=== PATIENT | female | born 1955 | race Caucasian/White ===

== ENCOUNTER 2016-09-29 20:03 | Emergency (ER) | payer OTHER ==
[~2016-09-29] VITALS: Ht 160 cm; Wt 60.2 kg
[~2016-09-29 20:03] MED LIST: ADVIN25/60 INH; ATV/1 PO; CHOL100027 PO; LSN/10125 PO; MELO15TA3 PO; NRN/300 PO
[2016-09-29 20:07] VITALS: TEMP 36.8; Ht 160 cm; Wt 60.2 kg
[2016-09-29 20:45] LABS: HEMATOCRIT 40.8 % (37-47); MEAN CELL VOLUME 86.4 fL (80-100); MEAN CORPUSCULAR HEMOGLOBIN 31.1 pg (25-34); PLATELET COUNT 251 K/uL (130-400); RED BLOOD COUNT 4.72 M/uL (4.2-5.4); WHITE BLOOD COUNT 10.72 K/uL (4.8-10.8)
[2016-09-29] MEDS ORDERED: CHOL1CAP57 PO (20:54)
[2016-09-29] MEDS ORDERED: LSN/20125 PO (20:54)
[2016-09-29] MEDS ORDERED: PRVHFAIN INH (20:54)
[2016-09-29] MEDS ORDERED: HYDR-5688 PO (20:54)
[2016-09-29] MEDS ORDERED: SYMIN160 INH (20:54)
[2016-09-29] MEDS ORDERED: VALA500T60 PO (20:57)
[2016-09-29 20:59] LABS: BUN/CREATININE RATIO 11.1 (10-20); CALCIUM 9.5 mg/dl (8.5-10.1); CREATININE 1.7 mg/dl (0.60-1.20); POTASSIUM 3.8 mmol/L (3.5-5.1)
[2016-09-29] MEDS ORDERED: SODIUM CHLORIDE 0.9% 1000ML 1,000 ML IV STA (21:02)
[2016-09-29 21:05] LABS: BENZODIAZEPINE, URINE NEG (NEG); COCAINE,URINE NEG (NEG); PHENCYCLIDINE, URINE NEG (NEG)
[2016-09-29 21:10] LABS: ACETAMINOPHEN < 2 ug/ml (10-30); THYROID STIMULATING HORMONE 4.23 uIu/ml (0.300-4.500)
[2016-09-29 21:44] VITALS: BP 142/77; PULSE 75; O2SAT 97
[2016-09-29] MEDS ORDERED: ATIVAN 1MG HOMEPACK PO ONE (22:00)
--- NOTE | 2016-09-29 22:08 | EMERGENCY ROOM VISIT NOTE ---
History Report prepared by Jameeibashley: Radha Solano Under the Supervision of: Dr. Dante Alcantar M.D. First contact with patient: 20:16 Chief Complaint: HYPERTENSION Stated Complaint: HTN, RAPID HEART RATE, ODOR IN VAGINA History of Present Illness The patient is a 61 year old female who presents to the Emergency Room with complaints of persistent elevated blood pressure that began 4 days ago. Her blood pressure reached up to 164 systolically this morning. The patient does have a history of hypertension and is on medication to control her blood pressure. She also complains of a rapid heart rate, palpitations, intermittent sweats, and lightheadedness that began around that time. About a week ago, she started to notice a chemical-like odor from her vaginal area. The odor is not fishy. She has not been sexually active for over a year. Currently she notes that she has a cough and congestion. She has had diarrhea over the past couple of days.The patient states that she is afraid that the tenants who live below her are poisoning her. They apparently have a pagan to her apartment and come into her residence. She believes that they have a pagan because they may be related to the landlord. The patient lives alone at home. She has had difficulty sleeping recently. Denies chest pain, shortness of breath, vomiting, abdominal pain, or other complaints. The patient notes that there have been people sick with the flu where she works. Denies homicidal or suicidal ideation. She has not had any auditory hallucinations. Source of History: patient Onset: 4 days ago Position: other (Global ) Symptom Intensity: 164 systolic Quality: other (hypertension) Timing: other (persistent) Associated Symptoms: + cough, + diarrhea, No SOB, No abdominal pain, No chest pain, No vomiting Note: Other symptoms: lightheadedness with exertion, intermittent sweats, rapid heart rate, palpitations, vaginal odor Review of Systems See HPI for pertinent positives & negatives. A total of 10 systems reviewed and were otherwise negative. Past Medical & Surgical Medical Problems: (1) Asthma (2) HTN (hypertension) Family History Diabetes mellitus FH: heart disease Hypertension Kidney disease or stones Social History Smoking Status: Current Every Day Smoker Housing Status: lives alone Current/Historical Medications Scheduled Budesonide/Formoterol Fumarate (Symbicort 160/4.5 Inhaler ), 2 PUFFS INH BID Cholecalciferol (Vitamin D3), 1,000 INTER.UNIT PO DAILY Hctz/Lisinopril (Zestoretic 20MG/12.5MG), 1 TAB PO DAILY Scheduled PRN Albuterol (Ventolin Hfa), 2 PUFFS INH Q4H PRN for Wheezing Hydrocodone/Acetaminophen 5MG/325MG ([place] 5MG/325MG), 1 TABLET PO DAILY PRN for Pain Lorazepam (Ativan), 1 MG PO BID PRN for Anxiety Valacyclovir (Valtrex), 500 MG PO UD PRN for Itchy Rash Allergies Coded Allergies: No Known Allergies (Unverified , 09/11/13) Physical Exam Vital Signs Date Time Temp Pulse Resp B/P Pulse Ox O2 Delivery O2 Flow Rate FiO2 09/29/16 21:44 75 18 142/77 97 Room Air 09/29/16 20:56 83 09/29/16 20:07 36.8 105 18 128/89 97 Room Air Physical Exam Constitutional: Vital signs reviewed. Eyes: Pupils are equal round reactive to light. Conjunctiva are noninjected. ENT: Pharynx is clear without erythema or exudate. Mucous membranes are moist. Neck supple without meningeal signs. Respiratory: Clear to auscultation bilaterally. Breath sounds are equal bilaterally. Cardiovascular: Regular rate and rhythm. No rubs or gallops. GI: Soft, nondistended and nontender. Bowel sounds are present. : She has no abnormal discharge, no significant odor, no cervical motion tenderness, no adnexal masses. Musculoskeletal: No peripheral edema. No lower extremity tenderness. No CVA tenderness. Integumentary: No cyanosis. Neurological: The patient is awake and alert. No focal deficits. Psychiatric: Slightly anxious appearing. Medical Decision & Procedures Laboratory Results 09/29/16 20:15 09/29/16 20:15 Test 09/29/16 20:15 09/29/16 20:30 09/29/16 20:45 Red Blood Count 4.72 M/uL (4.2-5.4) Mean Corpuscular Volume 86.4 fL (80-100) Mean Corpuscular Hemoglobin 31.1 pg (25-34) Mean Corpuscular Hemoglobin Concent 36.0 g/dl (32-36) RDW Standard Deviation 41.9 fL (36.4-46.3) RDW Coefficient of Variation 13.1 % (11.5-14.5) Mean Platelet Volume 10.0 fL (7.4-10.4) Anion Gap 12.0 mmol/L (3-11) Est Creatinine Clear Calc Drug Dose 29.5 ml/min Estimated GFR () 37.6 Estimated GFR (Non- 32.4 BUN/Creatinine Ratio 11.1 (10-20) Calcium Level 9.5 mg/dl (8.5-10.1) Total Bilirubin 0.5 mg/dl (0.2-1) Direct Bilirubin 0.1 mg/dl (0-0.2) Aspartate Amino Transf (AST/SGOT) 22 U/L (15-37) Alanine Aminotransferase (ALT/SGPT) 17 U/L (12-78) Alkaline Phosphatase 56 U/L (45-117) Total Protein 8.3 gm/dl (6.4-8.2) Albumin 4.8 gm/dl (3.4-5.0) Thyroid Stimulating Hormone (TSH) 4.230 uIu/ml (0.300-4.500) Free Thyroxine 1.41 ng/dl (0.80-1.60) Salicylates Level 4.3 mg/dl (2.8-20) Acetaminophen Level < 2 ug/ml (10-30) Ethyl Alcohol mg/dL < 3.0 mg/dl (0-3) Urine Opiates Screen POS (NEG) Urine Methadone, Qualitative NEG (NEG) Urine Barbiturates NEG (NEG) Urine Phencyclidine (PCP) Level NEG (NEG) Ur Amphetamine/Methamphetamine NEG (NEG) MDMA (Ecstasy) Screen NEG (NEG) Urine Benzodiazepines Screen NEG (NEG) Urine Cocaine Metabolite NEG (NEG) Urine Marijuana (THC) NEG (NEG) Date/Time Source Procedure Growth Status 09/29/16 20:45 Vaginal Swab Trichomonas Preparation - Final Complete Laboratory results as reviewed by me. Medications Administered Medications (Trade) Dose Ordered Sig/Alex Route Start Time Stop Time Status Last Admin Dose Admin Sodium Chloride (Nss 1000ml) 1,000 ml @ 999 mls/hr Q1H1M STAT IV 09/29/16 21:02 09/29/16 22:02 DC 09/29/16 21:43 999 MLS/HR Lorazepam (Ativan 1MG Home Pack) 1 homepack UD ONCE PO 09/29/16 22:00 09/29/16 22:01 DC 09/29/16 21:54 1 HOMEPACK ECG Indication: palpitations Rate (beats per minute): 98 Rhythm: normal sinus Findings: no acute ischemic change, no ectopy ED Course 2018: The patient was evaluated in room B10. A complete history and physical exam was performed. 2101: Ordered NSS 1000 ml @ 999 mls/hr IV. 2147: I reassessed the patient and discussed test results with her. She requested something to help her sleep tonight. The patient will be discharged home. 2199: Ordered Lorazepam 1 homepack PO. Medical Decision This is a 61-year-old female presents with palpitations, elevated blood pressure and vaginal odor. Differential diagnosis includes anxiety, hypertension, metabolic derangement, electrolyte abnormality, vaginosis, STI. I did perform a limited focused review of portions of the patient's old chart on the electronic medical record. The patient has had no recent pertinent visits to this hospital. I did evaluate the patient as noted above. The patient's blood pressure is not significantly elevated here. She is taking medications for her blood pressure and it seems to be well-controlled. I did perform a pelvic examination and obtaining general cultures as well as testing for GC and Trichomonas. The pelvic exam itself was unremarkable without any significant odor or discharge. Trichomonas testing was negative. Cultures and GC testing is pending. IV access was established. The patient was placed on a continuous playground monitor. She has no ectopy on the monitor. I did order and personally review the patient's 12-lead EKG as described above. I did order and review the patient's blood work as noted in the electronic medical record. She has some mild hyponatremia. Her creatinine and BUN are slightly elevated as well. This is elevated above her baseline and she was given a liter normal saline. She does state that she has been urinating normally. I did discuss the test results with the patient. I did recommend she follow closely with her doctor this week and have him recheck her creatinine to make sure that it is coming down. She was advised that if she is concerned that her neighbors are coming into her home that she should inform the police. She clearly has some paranoia regarding her neighbors but she does not appear acutely psychotic. She denies any auditory or visual hallucinations. She has no suicidal or homicidal ideation and has not shown herself to be a danger to herself or others. She was therefore discharged in good condition. Impression Primary Impression: Palpitations Additional Impressions: High blood pressure Creatinine elevation Vaginal odor Hyponatremia Scribe Attestation The scribe's documentation has been prepared under my direct and personally reviewed by me in its entirety. I confirm that the note above accurately reflects all work, treatment, procedures, and medical decision making performed by me. Departure Information Dispostion Home / Self-Care Referrals No Doctor, Assigned (PCP) Patient Instructions ED Palpitations, Hyponatremia Dc, Lorazepam Oral solution, My [facility] Additional Instructions You have been examined and treated today on an emergency basis only. This is not a substitute for, or an effort to provide, complete comprehensive medical care. It is impossible to recognize and treat all injuries or illnesses in a single emergency department visit. It is therefore important that you follow up closely with your physician. Call as soon as possible for an appointment. Return for worsening symptoms or if you develop fever, chest pain, shortness of breath or any other concerning symptoms. Have your doctor recheck your kidney function which was high today. Your creatinine was 1.7. Normal is 0.9. Problem Qualifiers
[2016-10-02 03:42] LABS: CHLAMYDIA TRACH RNA*** NOT DETECTED (NOT DETECTED); GC (NEIS GONORRHOEAE)RNA** NOT DETECTED (NOT DETECTED)
[2016-10-02 13:54] LABS: COD UR NEGATIVE NG/ML (CUTOFF=50); HYDROCOD UR 429 NG/ML (CUTOFF=50); HYDROMOR UR 249 NG/ML (CUTOFF=50); MORPHINE UR NEGATIVE NG/ML (CUTOFF=50); NORHYDROCODONE CONF UR 755 NG/ML (CUTOFF=50); OXYMORPH UR NEGATIVE NG/ML (CUTOFF=50)
[2016-11-25] MEDS ORDERED: ARIP2TAB3 PO (14:06)
== END 2016-09-29 21:57 | disposition home or self-care (01) ==
LOC: C.EDB 20:05
DX: R00.2 Palpitations (principal); I10 Essential (primary) hypertension; R79.89 Other specified abnormal findings of blood chemistry; N89.8 Other specified noninflammatory disorders of vagina; E87.1 Hypo-osmolality and hyponatremia; J45.909 Unspecified asthma, uncomplicated; F17.210 Nicotine dependence, cigarettes, uncomplicated; Z79.899 Other long term (current) drug therapy

== ENCOUNTER 2016-10-02 15:10 | Inpatient (IN) | payer OTHER ==
[~2016-10-02] VITALS: Ht 160 cm; Wt 60.9 kg
[~2016-10-02 15:10] MED LIST changes: -ADVIN25/60 INH; -CHOL100027 PO; +CHOL1CAP57 PO; +HYDR-5688 PO; -LSN/10125 PO; +LSN/20125 PO; -MELO15TA3 PO; -NRN/300 PO; +PRVHFAIN INH; +SYMIN160 INH; +VALA500T60 PO
[2016-10-02 16:29] LABS: URINE APPEARANCE CLEAR (CLEAR); URINE BILIRUBIN NEG (NEG); URINE COLOR YELLOW; URINE EPITHELIAL CELL AUTO >30 /lpf (0-5); URINE NITRITE NEG (NEG); URINE PH 6.5 (4.5-7.5); URINE SPECIFIC GRAVITY 1.005 (1.000-1.030); UROBILINOGEN NEG (NEG)
[2016-10-02 16:33] LABS: MANUAL MICROSCOPIC REQUIRED? NO; REVIEW REQ? NO
[2016-10-02 16:35] LABS: BASO % 0.5 %; BASO ABS # 0.04 K/uL (0-0.2); COMPLETE YES; HEMATOCRIT 35.6 % (37-47); IG% 0.2 %; LYMPH % 28.6 %; LYMPH ABS # 2.32 K/uL (1.2-3.4); MEAN CELL VOLUME 85.2 fL (80-100); MEAN CORPUSCULAR HEMOGLOBIN 30.1 pg (25-34); MEAN CORPUSCULAR HGB CONC 35.4 g/dl (32-36); MEAN PLATELET VOLUME 9.6 fL (7.4-10.4); MONO % 4.3 %; NEUT % 64.4 %; PLATELET COUNT 218 K/uL (130-400); RED BLOOD COUNT 4.18 M/uL (4.2-5.4); WHITE BLOOD COUNT 8.12 K/uL (4.8-10.8)
[2016-10-02 16:46] LABS: BENZODIAZEPINE, URINE NEG (NEG); COCAINE,URINE NEG (NEG); PHENCYCLIDINE, URINE NEG (NEG)
[2016-10-02 16:52] LABS: ALT/SGPT 17 U/L (12-78); AST/SGOT 15 U/L (15-37); BLOOD UREA NITROGEN 12 mg/dl (7-18); BUN/CREATININE RATIO 15.2 (10-20); CALCIUM 8.7 mg/dl (8.5-10.1); CARBON DIOXIDE 25 mmol/L (21-32); CHLORIDE 95 mmol/L (98-107); GLUCOSE 121 mg/dl (70-99); POTASSIUM 3.4 mmol/L (3.5-5.1); SODIUM 130 mmol/L (136-145)
[2016-10-02 17:02] LABS: ALB/GLOB RATIO 1.4 (0.9-2); ALKALINE PHOSPHATASE 52 U/L (45-117); THYROID STIMULATING HORMONE 0.559 uIu/ml (0.300-4.500)
--- NOTE | 2016-10-02 18:10 | DIAGNOSTIC IMAGING REPORT ---
CT HEAD WITHOUT CONTRAST (CT) CLINICAL HISTORY: Acute psychosis COMPARISON STUDY: No previous studies for comparison. TECHNIQUE: Axial CT of the brain is performed from the vertex to the skull base. IV contrast was not administered for this examination. CT DOSE: 638.56 mGycm FINDINGS: No intra or extra-axial mass lesions are visualized. There is no CT evidence of acute cortical infarction. There is no evidence of midline shift. There is no acute hemorrhage. No calvarial fractures are visualized. There is no evidence of pathologic ventricular dilatation. There is no evidence of acute sinusitis IMPRESSION: Normal noncontrast head CT for age. Electronically signed by: Elie Ernst M.D. 10/02/2016 6:09 PM Dictated Date/Time: 10/02/2016 6:08 PM
[2016-10-02] MEDS ORDERED: NURSING VERBAL MED ORDER ONE ×2 (19:00→19:45)
[2016-10-02 19:05] VITALS: O2SAT 98
--- NOTE | 2016-10-02 19:10 | EMERGENCY ROOM VISIT NOTE ---
History Report prepared by Andrews: Carl Fry Under the Supervision of: Dr. Kiran Ch D.O. First contact with patient: 15:37 Chief Complaint: MENTAL HEALTH EVALUATION Stated Complaint: HEAR PEOPLE TALKING TO ME History of Present Illness The patient is a 61 year old female who presents to the Emergency Room with complaints of persistent auditory hallucinations starting about 2 months ago. The patient has ringing in her ears. She reports the voices are telling her what she is doing, when she is doing it. They have been telling her that they don't like her and have placed something on her to watch her. The patient thinks that the voices are related to the landlord because her lights have been turned on and things are moved around. She states that she always locks her door but something she has been finding it to be unlocked. She reports increased stress. The patient also complains of high blood pressure and diarrhea. She has a history of hypertension. As per coworker, the patient has been at baseline for the past few days but informed her of the auditory hallucinations and asked to come to the Emergency Room. The patient has a history of anxiety. She denies any history of hallucinations or bipolar disorder. She currently denies any suicidal or homicidal ideation. She is currently in no pain. Pt denies headache, change in vision, fevers, chest pain , shortness of breath, nausea, vomiting, pain with urination, and melena. Source of History: patient Onset: about 2 months ago Position: other (global) Symptom Intensity: No pain Quality: other (auditory hallucinations) Timing: other (persistent) Associated Symptoms: + diarrhea, No SOB, No abdominal pain, No chest pain, No fevers, No nausea, No vomiting Review of Systems See HPI for pertinent positives & negatives. A total of 10 systems reviewed and were otherwise negative. Past Medical & Surgical Medical Problems: (1) Asthma (2) HTN (hypertension) Family History Diabetes mellitus FH: heart disease Hypertension Kidney disease or stones Social History Smoking Status: Current Every Day Smoker Marital Status: single Housing Status: lives alone Occupation Status: employed Current/Historical Medications Scheduled Budesonide/Formoterol Fumarate (Symbicort 160/4.5 Inhaler ), 2 PUFFS INH BID Cholecalciferol (Vitamin D3), 1,000 INTER.UNIT PO DAILY Hctz/Lisinopril (Zestoretic 20MG/12.5MG), 1 TAB PO DAILY Scheduled PRN Albuterol (Ventolin Hfa), 2 PUFFS INH Q4H PRN for Wheezing Hydrocodone/Acetaminophen 5MG/325MG ([place] 5MG/325MG), 1 TAB PO TID PRN for Pain Lorazepam (Ativan), 1 MG PO BID PRN for Anxiety Allergies Coded Allergies: No Known Allergies (Unverified , 09/11/13) Physical Exam Vital Signs Date Time Temp Pulse Resp B/P Pulse Ox O2 Delivery O2 Flow Rate FiO2 10/02/16 16:32 83 17 135/86 98 Room Air 10/02/16 15:18 36.8 87 18 157/94 100 Room Air Physical Exam GENERAL: Sitting up in bed, no acute distress, nontoxic. EYE EXAM: normal conjunctiva OROPHARYNX: no exudate, no erythema, lips, buccal mucosa, and tongue normal and mucous membranes are moist NECK: supple, no nuchal rigidity, no adenopathy, non-tender LUNGS: Clear to auscultation. Normal chest wall mechanics HEART: no murmurs, S1 normal and S2 normal ABDOMEN: abdomen soft, non-tender, normo-active bowel sounds, no masses, no rebound or guarding. SKIN: no rashes and no bruising UPPER EXTREMITIES: upper extremities are grossly normal. LOWER EXTREMITIES: No pitting edema. NEURO EXAM: Normal sensorium, cranial nerves II-XII grossly intact, normal speech, no gross weakness of arms, no gross weakness of legs. PSYCHIATRIC: Denies homicidal or suicidal ideation, denies visual hallucinations , admits to hearing voices. Paranoid. Medical Decision & Procedures ER Provider Diagnostic Interpretation: CT:Per my review, radiologist interpretation. CT HEAD WITHOUT CONTRAST (CT) CLINICAL HISTORY: Acute psychosis COMPARISON STUDY: No previous studies for comparison. TECHNIQUE: Axial CT of the brain is performed from the vertex to the skull base. IV contrast was not administered for this examination. CT DOSE: 638.56 mGycm FINDINGS: No intra or extra-axial mass lesions are visualized. There is no CT evidence of acute cortical infarction. There is no evidence of midline shift. There is no acute hemorrhage. No calvarial fractures are visualized. There is no evidence of pathologic ventricular dilatation. There is no evidence of acute sinusitis IMPRESSION: Normal noncontrast head CT for age. Electronically signed by: Elie Ernst M.D. 10/02/2016 6:09 PM Dictated Date/Time: 10/02/2016 6:08 PM Laboratory Results 10/02/16 16:11 Red Blood Count 4.18, Mean Corpuscular Volume 85.2, Mean Corpuscular Hemoglobin 30.1, Mean Corpuscular Hemoglobin Concent 35.4, Mean Platelet Volume 9.6, Neutrophils (%) (Auto) 64.4, Lymphocytes (%) (Auto) 28.6, Monocytes (%) (Auto) 4.3, Eosinophils (%) (Auto) 2.0, Basophils (%) (Auto) 0.5, Neutrophils # (Auto) 5.23, Lymphocytes # (Auto) 2.32, Monocytes # (Auto) 0.35, Eosinophils # (Auto) 0.16, Basophils # (Auto) 0.04 10/02/16 16:11 Test 10/02/16 15:39 10/02/16 16:11 Urine Color YELLOW Urine Appearance CLEAR (CLEAR) Urine pH 6.5 (4.5-7.5) Urine Specific [place] 1.005 (1.000-1.030) Urine Protein NEG (NEG) Urine Glucose (UA) NEG (NEG) Urine Ketones NEG (NEG) Urine Occult Blood TRACE (NEG) Urine Nitrite NEG (NEG) Urine Bilirubin NEG (NEG) Urine Urobilinogen NEG (NEG) Urine Leukocyte Esterase LARGE (NEG) Urine WBC (Auto) 5-10 /hpf (0-5) Urine RBC (Auto) 0-4 /hpf (0-4) Urine Hyaline Casts (Auto) 1-5 /lpf (0-5) Urine Epithelial Cells (Auto) >30 /lpf (0-5) Urine Bacteria (Auto) NEG (NEG) Urine Opiates Screen NEG (NEG) Urine Methadone, Qualitative NEG (NEG) Urine Barbiturates NEG (NEG) Urine Phencyclidine (PCP) Level NEG (NEG) Ur Amphetamine/Methamphetamine NEG (NEG) MDMA (Ecstasy) Screen NEG (NEG) Urine Benzodiazepines Screen NEG (NEG) Urine Cocaine Metabolite NEG (NEG) Urine Marijuana (THC) NEG (NEG) White Blood Count 8.12 K/uL (4.8-10.8) Red Blood Count 4.18 M/uL (4.2-5.4) Hemoglobin 12.6 g/dL (12.0-16.0) Hematocrit 35.6 % (37-47) Mean Corpuscular Volume 85.2 fL (80-100) Mean Corpuscular Hemoglobin 30.1 pg (25-34) Mean Corpuscular Hemoglobin Concent 35.4 g/dl (32-36) Platelet Count 218 K/uL (130-400) Mean Platelet Volume 9.6 fL (7.4-10.4) Neutrophils (%) (Auto) 64.4 % Lymphocytes (%) (Auto) 28.6 % Monocytes (%) (Auto) 4.3 % Eosinophils (%) (Auto) 2.0 % Basophils (%) (Auto) 0.5 % Neutrophils # (Auto) 5.23 K/uL (1.4-6.5) Lymphocytes # (Auto) 2.32 K/uL (1.2-3.4) Monocytes # (Auto) 0.35 K/uL (0.11-0.59) Eosinophils # (Auto) 0.16 K/uL (0-0.5) Basophils # (Auto) 0.04 K/uL (0-0.2) RDW Standard Deviation 41.0 fL (36.4-46.3) RDW Coefficient of Variation 13.1 % (11.5-14.5) Immature Granulocyte % (Auto) 0.2 % Immature Granulocyte # (Auto) 0.02 K/uL (0.00-0.02) Anion Gap 10.0 mmol/L (3-11) Est Creatinine Clear Calc Drug Dose 62.6 ml/min Estimated GFR () 93.5 Estimated GFR (Non- 80.7 BUN/Creatinine Ratio 15.2 (10-20) Calcium Level 8.7 mg/dl (8.5-10.1) Total Bilirubin 0.2 mg/dl (0.2-1) Direct Bilirubin < 0.1 mg/dl (0-0.2) Aspartate Amino Transf (AST/SGOT) 15 U/L (15-37) Alanine Aminotransferase (ALT/SGPT) 17 U/L (12-78) Alkaline Phosphatase 52 U/L (45-117) Total Protein 7.0 gm/dl (6.4-8.2) Albumin 4.1 gm/dl (3.4-5.0) Globulin 2.9 gm/dl (2.5-4.0) Albumin/Globulin Ratio 1.4 (0.9-2) Thyroid Stimulating Hormone (TSH) 0.559 uIu/ml (0.300-4.500) Ethyl Alcohol mg/dL < 3.0 mg/dl (0-3) Laboratory results per my review. ED Course ED COURSE: Vital signs were reviewed and showed hypertensive. The patients medical record was reviewed The above diagnostic studies were performed and reviewed. ED treatments and interventions as stated above. 1537: The patient was evaluated in room A06. A complete history and physical examination was performed. 1830: Upon reevaluation, the patient is resting comfortably.I discussed my findings with the patient and she understands and agrees with the treatment plan. Based on the patients age, coexisting illnesses, exam and lab findings the decision to treat as an inpatient was made. The patient remained stable while under my care. The patient will be evaluated for further management at [address] [place] [address]. Medical Decision Differential diagnosis: Etiologies such as mood disorder, infection, hypoglycemia, electrolyte abnormalities, cardiac sources, intracerebral event, toxicologic, neurologic, as well as others were entertained. Patient is a 61-year-old female who presents the ER for auditory hallucinations associated with paranoia brought in by a friend. She has no other complaints at this time. She denies any suicidal or homicidal ideations. CBC is unremarkable. BMP shows a sodium of 130 and Cl is a 95 which is fairly consistent with with her previous labs. LFTs, bilirubin and TSH are unremarkable. Patient had no urinary complaints and consequently UA I favor is contaminated with 5-10 white cells and leuks and greater than 30 epithelial cells. Urine tox was negative. Ethanol was negative. CT head was performed at the request of psychiatry which was negative as well. Patient was updated and admitted to psychiatry with paranoia and auditory hallucinations. Impression Primary Impression: Mood disorder Additional Impressions: Paranoia Auditory hallucinations Chronic hyponatremia Scribe Attestation The scribe's documentation has been prepared under my direction and personally reviewed by me in its entirety. I confirm that the note above accurately reflects all work, treatment, procedures, and medical decision making performed by me. Departure Information Dispostion Mental Health Acute Care Referrals No Doctor, Assigned (PCP) Forms HOME CARE DOCUMENTATION FORM, IMPORTANT VISIT INFORMATION Patient Instructions My [facility] Problem Qualifiers
[2016-10-02] MEDS ORDERED: SODIUM CHLORIDE 0.65% NA SOLN 45 ML (OCEAN) PRN (19:30)
[2016-10-02] MEDS ORDERED: ALUMINUM/MAGNESIUM SUSP 30 ML UDC PO PRN (19:30)
[2016-10-02] MEDS ORDERED: hydrOXYzine HCL 25 MG TAB PO PRN ×2 (19:30)
[2016-10-02] MEDS ORDERED: BISMUTH SUBSALICYLATE PER ML OMNICELL CHARGE PO PRN (19:30)
[2016-10-02] MEDS ORDERED: ACETAMINOPHEN 325 MG TAB PO PRN (19:30)
[2016-10-02] MEDS ORDERED: MAGNESIUM HYDROXIDE SUSP 30 ML UDC PO PRN (19:30)
[2016-10-02] MEDS ORDERED: HYDR-5688 PO (19:33)
[2016-10-02] MEDS ORDERED: ALBUTEROL HFA INHALER 8.5 GM INH PRN (19:45)
[2016-10-02] MEDS ORDERED: RISPERIDONE 1 MG TAB PO ONE (20:00)
[2016-10-02 20:07] VITALS: BP 120/80; PULSE 64; TEMP 36.4; Ht 160 cm; Wt 60.9 kg
[2016-10-02] MEDS: BUDESONIDE/FORMOTEROL FUMARATE 160/4.5 60 PUFFS/INHALER INH SCH (21:23)
[2016-10-02] MEDS: LORAZEPAM 1 MG TAB PO PRN (21:25)
[2016-10-03 06:54] VITALS: BP_SYST 110; BP_SYST 114; BP_DIAS 72; BP_DIAS 78; PULSE 66; PULSE 76; TEMP 36.6
[2016-10-03] MEDS: CHOLECALCIFEROL 1000 INTER.UNIT TAB PO SCH (09:18)
[2016-10-03] MEDS: BUDESONIDE/FORMOTEROL FUMARATE 160/4.5 60 PUFFS/INHALER INH SCH ×2 (09:18→21:06)
[2016-10-03] MEDS: LISINOPRIL/HCTZ 20/12.5MG TAB PO SCH (09:18)
[2016-10-03] MEDS: NICOTINE 14 MG/24 HR TDSY TD SCH (09:18)
[2016-10-03] MEDS ORDERED: RISPERIDONE 0.5 MG TAB PO ONE (10:32)
[2016-10-03] MEDS ORDERED: RISPERIDONE 0.5 MG TAB PO PRN (10:45)
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
[2016-10-03] MEDS: HYDROCODONE/ACETAMOPHEN 5/325MG TAB PO PRN (15:13)
[2016-10-03] MEDS: LORAZEPAM 1 MG TAB PO PRN (15:14)
[2016-10-03] MEDS: RISPERIDONE 0.5 MG TAB PO SCH (21:03)
[2016-10-03] MEDS: ESCITALOPRAM OXALATE 10 MG TAB PO SCH (21:04)
[2016-10-04 06:55] VITALS: BP_SYST 117; BP_SYST 123; BP_DIAS 69; BP_DIAS 84; PULSE 64; PULSE 70; TEMP 36.7
[2016-10-04] MEDS: BUDESONIDE/FORMOTEROL FUMARATE 160/4.5 60 PUFFS/INHALER INH SCH ×2 (08:25→21:10)
[2016-10-04] MEDS: LISINOPRIL/HCTZ 20/12.5MG TAB PO SCH (08:25)
[2016-10-04] MEDS: NICOTINE 14 MG/24 HR TDSY TD SCH (08:26)
[2016-10-04] MEDS: RISPERIDONE 0.5 MG TAB PO SCH ×2 (08:26→21:09)
[2016-10-04] MEDS: CHOLECALCIFEROL 1000 INTER.UNIT TAB PO SCH (08:26)
--- NOTE | 2016-10-04 11:45 | Psychiatric Progress Notes ---
Progress Note Date of Service Oct 04, 2016. Interval History 61 yo female with a history of anxiety and alcohol abuse, who presented with psychotic symptoms, including auditory hallucinations, paranoia and delusions of persecution. These have been worsening for the past couple of months in the context of depression, caffeine and nicotine abuse and use of prescribed opiates and benzodiazepines. Chief Complaint "how much longer am I going to be here, I feel I was trapped". Subjective Patient was seen & assessed interval progress reviewed with Treatment Team. Patient is currently refusing to rescind her 72 hour notice. At one point yesterday afternoon she was actively trying to leave the unit and/or responding to internal stimuli. Calmed with prn Ativan. Patient still only admit to 2-3 bottles of wine a week. Does not appear to be withdrawing, states she slept well. Review of Systems Psych: denies symptoms other than stated above Constitutional: denied Cardiovascular: denied GI: denied Neurologic: denied Sleep Information Total Hours of Sleep: 6.50 Meal Information Percent of Breakfast Consumed: 100 Percent of Lunch Consumed: 0 Percent of Dinner Consumed: 100 Mental Status Exam During interview pt is: alert and oriented Appearance: appropriately dressed, appropriately groomed Eye contact is: good Motor behavior is: no abnormal motor movements Speech: normal in rate, rhythm & volume Affect: depressed Mood is: anxious Thought process: clear, coherent Thought content: paranoid Suicidal thought are: denied Homicidal thoughts are: denied Hallucinations: denies auditory, denies visual Cognition: language grossly intact Intelligence estimated to be: average Insight: limited Judgement: limited Summary of Past History 61 yo female admit with psychotic depression, responding to low dose Risperdal and Lexapro. Patient's 72 hour notice (if fails to rescind) is up on 10/06/16. Patient's main focus is returning to work on Friday, she is currently agreeable to continue with inpatient care but won't rescind notice. Continued Inpatient Care Continued inpatient hospitalization is medically necessary for ongoing monitoring and safety as patient seems to be minimizing psychotic symptoms and still lacking insight, though certainly recognized she wanted psych assessment and medication. She has limited social supports as lives alone and symptoms were impacting feeling of safety in her apartment and also ability to go to work. Plan (1) Major psychotic depression, single episode 10/04/16--titrating Lexapro, tolerating Risperdal 0.5 mg BID well; metabolic labs reviewed (WNL), no evidence of EPS/abnormal motor movements/akathisia. (2) Alcohol use likely self medicating for anxiety, patient doesn't view as problematic, reviewed risks in combo with benzos (especially respiratory depression if taken with pain meds), PCP to be notified upon discharge discharge. (3) Hyponatremia Discharge / Aftercare Planning Primary Care Physician: Name: Mohan Ware Psychiatrist: Name: gertrude Therapist: Name: gertrude Immunologist: Name: gertrude Visit Code E&M Code: 85115 Data Vital Signs Last 24 Hrs: Date Time Temp Pulse Resp B/P Pulse Ox O2 Delivery O2 Flow Rate FiO2 10/04/16 06:55 36.7 64 16 117/69 70 123/84 Meds Administered Last 24 Hrs: Meds Administered (Past 24Hrs) Medications (Trade) Dose Ordered Sig/Alex Route Start Time Stop Time Status Last Admin Dose Admin Risperidone (Risperdal Tab) 1 mg TODAY@1999 ONCE PO 10/02/16 20:00 10/02/16 20:01 DC 10/02/16 20:04 1 MG Lorazepam (Ativan Tab) 1 mg BID PRN PO 10/02/16 19:30 11/01/16 19:29 10/03/16 15:14 1 MG Budesonide/ Formoterol Fumarate (Symbicort 160/ 4.5 Inh) 2 puffs BID INH 10/02/16 22:00 11/01/16 21:59 10/04/16 08:25 2 PUFFS HCTZ/Lisinopril (Prinzide 20-12.5MG Tab) 1 tab DAILY PO 10/03/16 09:00 11/02/16 08:59 10/04/16 08:25 1 TAB Acetaminophen/ Hydrocodone Bitart ([place] 5/325 Tab) 1 tab TID PRN PO 10/02/16 19:45 10/16/16 19:44 10/03/16 15:13 1 TAB Nicotine (Nicoderm Cq 14MG Patch) 1 patch QAM TD 10/03/16 09:00 11/02/16 08:59 10/04/16 08:26 1 PATCH Miscellaneous (Remove Nicoderm Patch) 1 ea HS N/A 10/02/16 22:00 11/01/16 21:59 10/03/16 21:06 1 EA Cholecalciferol (Vitamin D Tab) 1,000 inter.unit DAILY PO 10/03/16 09:00 11/02/16 08:59 10/04/16 08:26 1,000 INTER.UNIT Risperidone (Risperdal Tab) 0.5 mg BID PO 10/03/16 22:00 11/02/16 21:59 10/04/16 08:26 0.5 MG Risperidone (Risperdal Tab) 0.5 mg 1032 ONCE PO 10/03/16 10:32 10/03/16 10:45 DC 10/03/16 11:16 0.5 MG Escitalopram Oxalate (Lexapro Tab) 5 mg Taper HS PO 10/03/16 22:00 11/03/16 21:59 10/03/16 21:04 5 MG Lab Results Last 24 Hrs: Last 24 Hours Test 10/04/16 07:00 Sodium Level 137 mmol/L Potassium Level 4.0 mmol/L Chloride Level 101 mmol/L Carbon Dioxide Level 27 mmol/L Anion Gap 9.0 mmol/L Fasting Glucose 96 mg/dl Triglycerides Level 99 mg/dl Cholesterol Level 167 mg/dl HDL Cholesterol 82 mg/dl LDL Cholesterol, Calculated 65 mg/dl VLDL Cholesterol, Calculated 20 mg/dl Cholesterol/HDL Ratio 2.0
[2016-10-04] MEDS: LORAZEPAM 1 MG TAB PO PRN (12:54)
[2016-10-04] MEDS: HYDROCODONE/ACETAMOPHEN 5/325MG TAB PO PRN (12:54)
[2016-10-04] MEDS: ESCITALOPRAM OXALATE 10 MG TAB PO SCH (21:09)
[2016-10-05 07:01] VITALS: BP_SYST 119; BP_SYST 121; BP_DIAS 79; BP_DIAS 80; PULSE 66; PULSE 70; TEMP 37
[2016-10-05] MEDS: RISPERIDONE 0.5 MG TAB PO SCH ×2 (08:56→21:30)
[2016-10-05] MEDS: LISINOPRIL/HCTZ 20/12.5MG TAB PO SCH (08:56)
[2016-10-05] MEDS: BUDESONIDE/FORMOTEROL FUMARATE 160/4.5 60 PUFFS/INHALER INH SCH ×2 (08:56→21:29)
[2016-10-05] MEDS: NICOTINE 14 MG/24 HR TDSY TD SCH (08:57)
[2016-10-05] MEDS: CHOLECALCIFEROL 1000 INTER.UNIT TAB PO SCH (08:57)
--- NOTE | 2016-10-05 11:01 | Psychiatric Progress Notes ---
Progress Note Date of Service Oct 05, 2016. Interval History 61 yo female with a history of anxiety and alcohol abuse, who presented with psychotic symptoms, including auditory hallucinations, paranoia and delusions of persecution. These have been worsening for the past couple of months in the context of depression, caffeine and nicotine abuse and use of prescribed opiates and benzodiazepines. Chief Complaint "I am feeling better". Subjective Patient was seen & assessed interval progress reviewed with nursing. She shared about feeling better and less depressed and much calmer. She realizes how she was having her "head play tricks with her" from her depression and anxiety and that has improved. She feels clearheaded and states that the previous AH are now just occasional mumbles that cannot make out. She is seeking to continue her medication and see a psychotherapist. She is still focused on discharge for tomorrow and has a 72 hour notice that expires 1340 on Friday. She denied SI or HI. She is considering to take Friday off to help settle herself after discharge. She denied any s/e to the medications. She reports sleeping fine and improved energy level. Her appetite is normal and described enjoying the food she is eating. She denied manic symptoms. She denied any EPS. Review of Systems Constitutional: No chills, No fatigue, No fever, No problem reported, No sweats , No weakness, No weight loss Cardiovascular: No PND, No chest pain, No claudication, No edema, No orthopnea , No palpitations, No problem reported Abdomen: No GI bleeding, No constipation, No diarrhea, No nausea, No pain, No problem reported, No vomiting Musculoskeletal: + joint pain (chronic shoulder/back pain ) Neurologic: No balance problems, No memory loss, No numbness/tingling, No paralysis, No problem reported, No vertigo, No weakness Sleep Information Total Hours of Sleep: 6.50 Meal Information Percent of Breakfast Consumed: 90 Percent of Lunch Consumed: 100 Percent of Dinner Consumed: 100 Mental Status Exam During interview pt is: alert and oriented Appearance: appropriately dressed, appropriately groomed Eye contact is: good Motor behavior is: no abnormal motor movements Speech: normal in rate, rhythm & volume Affect: mood congruent, other (not anxious, full range, nl ampulitde, ) Mood is: other Thought process: clear, coherent Thought content: paranoid Suicidal thought are: denied Homicidal thoughts are: denied Hallucinations: auditory (some mild mumbling occasionally ) Cognition: language grossly intact Intelligence estimated to be: average Insight: fair (improving) Judgement: fair (improving) Summary of Past History 61 yo female admit with psychotic depression, responding to low dose Risperdal and Lexapro. Patient's 72 hour notice (if fails to rescind) is up on 10/06/16. Patient focused on treatment and aiming now to take Friday off work but still not wiling to rescind 72 hour notice. She is having notable improvement and engaged in treatment and seeking outpatient care and making appropriate plans for support. She appears to desire to continue her medications. Given level of improvement and engagement, involuntary treatment does not appear warranted. Aiming for discharge tomorrow, Friday, if pt does not rescind 72 hour notice with potential for another day or so of inpatient treatment to help be more fully stabilized and outpt care more fully cemented before discharge if she does rescind 7 2 hour notice. Continued Inpatient Care Continued inpatient hospitalization is medically necessary for ongoing monitoring and safety as patient seems to be minimizing psychotic symptoms and still lacking insight, though certainly recognized she wanted psych assessment and medication. She has limited social supports as lives alone and symptoms were impacting feeling of safety in her apartment and also ability to go to work. Plan (1) Major psychotic depression, single episode 10/04/16--titrating Lexapro, tolerating Risperdal 0.5 mg BID well; metabolic labs reviewed (WNL), no evidence of EPS/abnormal motor movements/akathisia. 10/05/16 - maintaining meds at current dosage that is tolerating and appearing to be alleviating factor coordinating aftercare and addressing 72 hour notice and treatment plan (2) Alcohol use likely self medicating for anxiety, patient doesn't view as problematic, reviewed risks in combo with benzos (especially respiratory depression if taken with pain meds), PCP to be notified upon discharge discharge. (3) Hyponatremia Discharge / Aftercare Planning Primary Care Physician: Name: Mohan Ware Phone Number: [phone] Psychiatrist: Name: Chen Jarquin Phone Number: [phone] Date of Appointment: Oct 29, 2016 Time of Appointment: 2:00 Appointment Notes: [facility] [place] [address]. Therapist: Name: gertrude Copy Coordinator: Name: gertrude Visit Code E&M Code: 77591 Data Vital Signs Last 24 Hrs: Date Time Temp Pulse Resp B/P Pulse Ox O2 Delivery O2 Flow Rate FiO2 10/05/16 07:01 37.0 66 16 121/80 70 119/79 Meds Administered Last 24 Hrs: Meds Administered (Past 24Hrs) Medications (Trade) Dose Ordered Sig/Alex Route Start Time Stop Time Status Last Admin Dose Admin Risperidone (Risperdal Tab) 0.5 mg BID PO 10/03/16 22:00 11/02/16 21:59 10/05/16 08:56 0.5 MG Escitalopram Oxalate (Lexapro Tab) 10 mg Taper HS PO 10/03/16 22:00 11/03/16 21:59 10/04/16 21:09 10 MG
[2016-10-05] MEDS: LORAZEPAM 1 MG TAB PO PRN (12:45)
[2016-10-05] MEDS: HYDROCODONE/ACETAMOPHEN 5/325MG TAB PO PRN ×2 (12:46→18:44)
[2016-10-05] MEDS: ESCITALOPRAM OXALATE 10 MG TAB PO SCH (21:29)
[2016-10-06 06:47] VITALS: BP_SYST 114; BP_SYST 130; BP_DIAS 75; PULSE 68; PULSE 70; TEMP 36.8
[2016-10-06] MEDS: CHOLECALCIFEROL 1000 INTER.UNIT TAB PO SCH (08:55)
[2016-10-06] MEDS: RISPERIDONE 0.5 MG TAB PO SCH (08:55)
[2016-10-06] MEDS: LISINOPRIL/HCTZ 20/12.5MG TAB PO SCH (08:55)
[2016-10-06] MEDS: BUDESONIDE/FORMOTEROL FUMARATE 160/4.5 60 PUFFS/INHALER INH SCH (08:55)
[2016-10-06] MEDS: NICOTINE 14 MG/24 HR TDSY TD SCH (08:56)
[2016-10-06] MEDS ORDERED: RISP0.5T4 PO (09:38)
[2016-10-06] MEDS ORDERED: LXP10 PO (09:38)
[2016-10-06] MEDS ORDERED: ATV1 PO (09:38)
--- NOTE | 2016-10-06 10:07 | Discharge Instructions ---
Discharge Information Report Includes Report will include the: Discharge Instructions & Summary Admission Admission Date / Time: Oct 02, 2016 at 18:55 Reason for Admission: Dx Psychosis Nos Discharge Discharge Diagnosis / Problem: Major Depressive Disorder with Psychotic features Condition at Discharge: improved Discharge Goals Goal(s): Improve function, Learn about illness Activity Recommendations Activity Limitations: resume your previous activity . Instructions / Follow-Up Instructions / Follow-Up . SPECIAL CARE INSTRUCTIONS: 1. Follow through with your scheduled aftercare appointments. If unable to keep an appointment, please call to reschedule. 2. Take your medication only as prescribed. Medication should not be changed or stopped without the approval of your doctor. In the event of worsening symptoms or concerns about side effects, contact your doctor immediately. 3. Utilize new healthy coping skills, anger management skills, and stress management skills learned during your hospitalization. Journal feelings and process them with a support person. Identify stressors or situations that may result in relapse, deterioration or inappropriate behaviors and develop a plan to deal with those issues. 4. If your coping skills are ineffective and you are in crisis, contact your outpatient providers for direction. If unable to reach your providers, please call the CAN HELP LINE AT or go to the closest Emergency Room. 5. Avoid alcohol and un-prescribed drugs. 6. You have been provided with the Mental Health Advance Directives Pamphlet for your review. AFTERCARE APPOINTMENTS: * Please call your insurance company prior to your scheduled appointment to confirm your aftercare providers are covered. Take your insurance information to your appointments. . Discharge / Aftercare Planning Primary Care Physician: Name: Mohan Ware Phone Number: [phone] Psychiatrist: Name: Ezio Jarquin Phone Number: [phone] Date of Appointment: Oct 29, 2016 Time of Appointment: 2:00 Appointment Notes: [id number] [place] [address]. Therapist: Name Of Therapist: gertrude Protection Specialist: Name: gertrude . Follow-Up Care Plan for Follow-Up Care: Ezio Jarquin med management Current Hospital Diet Patient's current hospital diet: Regular Diet Discharge Diet Recommended Diet: Regular Diet Procedures Procedures Performed: No Pending Studies Pending Studies at Discharge: No Medical Emergencies . Who to Call and When: Medical Emergencies: For questions or emergencies related to your hospital stay, please contact the Inpatient Behavioral Health Unit at [phone]. A ob gyn is on-call 24/03 for the Behavioral Health Unit for emergencies At any time you feel your situation is an emergency, you may also call 911 immediately. . Non-Emergent Contact Non-Emergency issues call your: Primary Care Provider Advance Directives Existing Advance Directive: No Do You Have an Existing Mental: No Existing Living Will: No Existing Power of Improvement Auditor: No Advance Directives Info Given: To Pt/S.O. Discharge Summary Hospital Course (1) Major psychotic depression, single episode 10/04/16--titrating Lexapro, tolerating Risperdal 0.5 mg BID well; metabolic labs reviewed (WNL), no evidence of EPS/abnormal motor movements/akathisia. 10/05/16 - maintaining meds at current dosage that is tolerating and appearing to be alleviating factor coordinating aftercare and addressing 72 hour notice and treatment plan 10/06/16 continue to improve, mood improved and less anxious and in good spirits with mood 9 out of 10 last evening and this morning. AH only fleeting mumbling that is occuring less often on 10/05 and not present on 10/06 morning. Lexapro 10mg at bedtime, risperdal 0.5mg BID - baseline lipids and fasting glucose (WNL) Ativan lowered to 1mg prn given one time each day while on the unit. pt was previously taking 1mg at bedtime and 1mg most days a prn dose for anxiety prior to admission. Goal is to wean off this medication with only taking 1mg up to once a day for acute severe anxiety with current home supply and aiming for patient to wean fully off the medication in upcoming weeks. (2) Alcohol use likely self medicating for anxiety, patient doesn't view as problematic, reviewed risks in combo with benzos (especially respiratory depression if taken with pain meds), PCP to be notified upon discharge, ativan weaned from 1mg 1-2 times a day to up to 1mg once a day for acute severe anxiety only using home supply and aiming for this med to be discontinued in upcoming weeks. (3) Hyponatremia On admission Sodium 130, potassium 3.4 and Clhoride 95, on repeat sodium 137, potassium 4.0 and chloride 101 Risk Factors Assessment : Yes Access to guns: No Mental Health Diagnoses: Yes Smoker: Yes Protective Factors Assessment : No Responsible for young children: No Employed: Yes Stable relationships: Yes Day of Discharge Assessment Patient in good spirits, feeling ready for discharge, "9 out of 10 for her mood , engaging on the unit per staff, eating her meals, organized in her thinking and behavior. She endorsed AH is mumbling only and decrease in frequency occurring and only lasting for moments when occurring and has not occurred yet this morning. She believes treatment is helping her and that will continue to alleviate symptoms fully as she continues ot take it. She is interested in outpatient followup. She is connecting with her boss, who visited last night. She plans to take tomorrow off from work to help settle herself back from the hospital and is aiming for some mild overtime scheduling with her boss to help with finances. She denied side effects from her medication. She is sleep ing well and ocmofrtable with not taking ativan at bedtime and comfortable with weaning off the ativan, with using it for time being at most once a day only for acute severe anxiety with awareness that this is likely to be stopped as a med in the near future. She is without suicidal or homicidal ideation. She denied paranoid thinking and none noted. She endorsed improved concentration. IN her mental status exam, her concentration is still not quite grossly intact but significantly improved from time of admission and was improving each day. She was unable to do serial 3's or serial 7's as not able or wiling to put in the effort at time of assessment but did spell world backwards correctly. She had submitted a 72 hour notice that expires 1340 today and she is not meeting criteria for involuntary treatment and outpatient treatment at this time is clinically appropriate although conventional underwriter had been engaging with her to consider rescinding her 72 hour notice for potential of another day approximately of treatment at the inpatient level to monitor for more complete resolution of mumbling and concentration. Patient has also started to express interest in psychotherapy appointments and this was not yet established as an outpatient appointment by time of discharge. Pt decline to rescind her 72 hour notice and instead felt that she can set up her own therapy appointment by calling her insurance provider tomorrow. She is a smoker and was using nicotine patches on the unit but refused to continue them for after discharge, stating not ready to stop smoking nand not wanting other potential intravenations for this. Her fasting lipid and glucose labs were normal. At admission her sodium,potassium and chloride labs were mildly low but were normal on repeat. She has an appointment with ezio for psychiatric med management on October Laboratory Refer to printed laboratory reports Test 09/29/16 20:15 09/29/16 20:30 09/29/16 20:45 10/02/16 15:39 White Blood Count 10.72 Red Blood Count 4.72 Hemoglobin 14.7 Hematocrit 40.8 Mean Corpuscular Volume 86.4 Mean Corpuscular Hemoglobin 31.1 Mean Corpuscular Hemoglobin Concent 36.0 RDW Standard Deviation 41.9 RDW Coefficient of Variation 13.1 Platelet Count 251 Mean Platelet Volume 10.0 Sodium Level 133 L Potassium Level 3.8 Chloride Level 94 L Carbon Dioxide Level 27 Anion Gap 12.0 H Blood Urea Nitrogen 19 H Creatinine 1.70 H Est Creatinine Clear Calc Drug Dose 29.5 Estimated GFR () 37.6 Estimated GFR (Non- 32.4 BUN/Creatinine Ratio 11.1 Random Glucose 98 Calcium Level 9.5 Total Bilirubin 0.5 Direct Bilirubin 0.1 Aspartate Amino Transferase (AST) 22 Alanine Aminotransferase (ALT) 17 Alkaline Phosphatase 56 Total Protein 8.3 H Albumin 4.8 Thyroid Stimulating Hormone (TSH) 4.230 Free Thyroxine 1.41 Salicylates Level 4.3 Acetaminophen Level < 2 L Ethyl Alcohol mg/dL < 3.0 Urine Opiates Screen POS H NEG Urine Codeine Confirmation (GC/MS) NEGATIVE Urine Morphine Confirm (GC/MS) NEGATIVE Urine Hydrocodone Confirm (GC/MS) 429 A Urine Norhydrocodone 755 A Urine Noroxycodone NEGATIVE Urine Oxycodone Confirm (GC/MS) NEGATIVE Urine Oxymorphone Confirm (GC/MS) NEGATIVE Urine Methadone, Qualitative NEG NEG Urine Hydromorphone Confirm (GC/MS) 249 A Urine Barbiturates NEG NEG Urine Phencyclidine (PCP) Level NEG NEG Ur Amphetamine/Methamphetamine NEG NEG MDMA (Ecstasy) Screen NEG NEG Urine Benzodiazepines Screen NEG NEG Urine Cocaine Metabolite NEG NEG Urine Marijuana (THC) NEG NEG Chlamydia trachomatis RNA NOT DETECTED Neisseria gonorrhoeae RNA NOT DETECTED Urine Color YELLOW Urine Appearance CLEAR Urine pH 6.5 Urine Specific [place] 1.005 Urine Protein NEG Urine Glucose (UA) NEG Urine Ketones NEG Urine Occult Blood TRACE H Urine Nitrite NEG Urine Bilirubin NEG Urine Urobilinogen NEG Urine Leukocyte Esterase LARGE H Urine WBC (Auto) 5-10 H Urine RBC (Auto) 0-4 Urine Hyaline Casts (Auto) 1-5 Urine Epithelial Cells (Auto) >30 H Urine Bacteria (Auto) NEG Test 10/02/16 16:11 10/04/16 07:00 White Blood Count 8.12 Red Blood Count 4.18 L Hemoglobin 12.6 Hematocrit 35.6 L Mean Corpuscular Volume 85.2 Mean Corpuscular Hemoglobin 30.1 Mean Corpuscular Hemoglobin Concent 35.4 Platelet Count 218 Mean Platelet Volume 9.6 Neutrophils (%) (Auto) 64.4 Lymphocytes (%) (Auto) 28.6 Monocytes (%) (Auto) 4.3 Eosinophils (%) (Auto) 2.0 Basophils (%) (Auto) 0.5 Neutrophils # (Auto) 5.23 Lymphocytes # (Auto) 2.32 Monocytes # (Auto) 0.35 Eosinophils # (Auto) 0.16 Basophils # (Auto) 0.04 RDW Standard Deviation 41.0 RDW Coefficient of Variation 13.1 Immature Granulocyte % (Auto) 0.2 Immature Granulocyte # (Auto) 0.02 Sodium Level 130 L 137 # Potassium Level 3.4 L 4.0 # Chloride Level 95 L 101 Carbon Dioxide Level 25 27 Anion Gap 10.0 9.0 Blood Urea Nitrogen 12 Creatinine 0.80 Est Creatinine Clear Calc Drug Dose 62.6 Estimated GFR () 93.5 Estimated GFR (Non- 80.7 BUN/Creatinine Ratio 15.2 Random Glucose 121 H Calcium Level 8.7 Total Bilirubin 0.2 Direct Bilirubin < 0.1 Aspartate Amino Transferase (AST) 15 Alanine Aminotransferase (ALT) 17 Alkaline Phosphatase 52 Total Protein 7.0 Albumin 4.1 Globulin 2.9 Albumin/Globulin Ratio 1.4 Thyroid Stimulating Hormone (TSH) 0.559 Ethyl Alcohol mg/dL < 3.0 Fasting Glucose 96 Triglycerides Level 99 Cholesterol Level 167 HDL Cholesterol 82 LDL Cholesterol, Calculated 65 VLDL Cholesterol, Calculated 20 Cholesterol/HDL Ratio 2.0 Total Time Total Time Spent (min): Greater than 30 minutes Total Time Included: examination of the patient, discharge planning, medication reconciliation Tobacco Cessation at Discharge FDA approved Prescription: patient refused Copies To Additional Copies To: [facility]
[2016-10-06] MEDS: HYDROCODONE/ACETAMOPHEN 5/325MG TAB PO PRN (10:29)
[2016-11-25] MEDS ORDERED: ARIP2TAB3 PO (14:06)
== END 2016-10-06 11:00 | disposition home or self-care (01) | DRG 885 ==
LOC: C.EDB 15:11 → C.MHU 18:55
PROVIDERS: ADMIT Student in an Organized Health Care Education/Training Program; ATTEND Psychiatry & Neurology Psychiatry
DX: F33.3 Major depressive disorder, recurrent, severe with psychotic symptoms (principal); E87.1 Hypo-osmolality and hyponatremia; J45.909 Unspecified asthma, uncomplicated; E87.6 Hypokalemia; F17.210 Nicotine dependence, cigarettes, uncomplicated; F41.9 Anxiety disorder, unspecified; G89.29 Other chronic pain; M54.9 Dorsalgia, unspecified; F29 Unspecified psychosis not due to a substance or known physiological condition; F10.10 Alcohol abuse, uncomplicated; M19.90 Unspecified osteoarthritis, unspecified site; F15.90 Other stimulant use, unspecified, uncomplicated; I10 Essential (primary) hypertension; Z79.899 Other long term (current) drug therapy; Z79.891 Long term (current) use of opiate analgesic; Z79.51 Long term (current) use of inhaled steroids

== ENCOUNTER → 2016-10-24 | Outpatient (CLI) | payer OTHER ==
[~2016-10-24] MED LIST changes: +ARIP2TAB3 PO; -ATV/1 PO; +ATV1 PO; +LXP10 PO; +RISP0.5T4 PO; -VALA500T60 PO
== END | disposition home or self-care (01) ==
LOC: C.LABSPEC 17:32
PROVIDERS: ATTEND Obstetrics & Gynecology
DX: N89.8 Other specified noninflammatory disorders of vagina (principal)

== ENCOUNTER → 2016-10-24 | Outpatient (CLI) | payer OTHER | END | disposition home or self-care (01) | LOC: C.PAPS 09:04 | PROVIDERS: ATTEND Obstetrics & Gynecology | DX: Z01.419 Encounter for gynecological examination (general) (routine) without abnormal findings (principal) ==

== ENCOUNTER 2016-11-28 10:59 | Emergency (ER) | payer OTHER ==
[~2016-11-28] VITALS: Ht 160 cm; Wt 66.0 kg
[~2016-11-28 10:59] MED LIST changes: -LXP10 PO
[2016-11-28 11:03] VITALS: TEMP 36.8; Ht 160 cm; Wt 66.0 kg
--- NOTE | 2016-11-28 11:27 | EMERGENCY ROOM VISIT NOTE ---
ED Visit Note First contact with patient: 11:06 CHIEF COMPLAINT: Neck pain HISTORY OF PRESENT ILLNESS: This 61-year-old female patient presents to the emergency department ambulatory complaining of chronic neck and low back pain. The patient states that she has been diagnosed with degenerative disc disease and has had pain primarily in her neck but also in her low back for several years. The patient states that her pain worsens when standing at work. She states that her neck "pops and snaps" and she has been told by orthopedics that she needs surgery in the future. She reports she occasionally has migraines due to the pain and has had difficulty sleeping due to the pain. She rates her pain a 10/10. She denies any radiation of the pain or any numbness or weakness. The patient does report occasional tingling in bilateral hands. The patient states that [id number] medications do not work for her and she does not take them due to potential stomach issues. She sees Dr. Carrillo for her pain and states that he previously prescribed her hydrocodone, but recently referred her to pain management and is not planning on writing her any further prescriptions. She states that she saw pain management and they scheduled her for an injection in the neck for next month. The patient states that she is out of her medication. She denies any new injury or new symptoms. The patient denies chest pain or shortness of breath. She denies any fevers/chills or recent illness. REVIEW OF SYSTEMS: A 6 system review of systems was completed with positives and pertinent negatives listed in the HPI. ALLERGIES: No known drug allergies MEDICATIONS: Ventolin inhaler, Abilify, Symbicort, HCTZ/lisinopril, lorazepam, vitamin D3 PMH: Degenerative disc disease SOCIAL HISTORY: The patient lives locally with family. She is a smoker. PHYSICAL EXAM: VITALS: Vitals are noted on the nurse's note and reviewed by myself. Vital signs stable. GENERAL: This is a 61-year-old female, in no acute distress, nondiaphoretic, well-developed well-nourished. SKIN: Capillary reflex less than 2 seconds. HEENT: Normocephalic. PERRLA. EOMI. Nares patent. Mucous membranes moist. Neck is supple without nuchal rigidity. Cervical spine is not tender to palpation. The patient has mild tenderness of the cervical paraspinal muscles bilaterally. There is no lymphadenopathy. MUSCULOSKELETAL: The patient has full range of motion of the bilateral arms. Strength 5/5 of the bilateral upper extremities. Full range of motion of the neck. NEURO: Patient was alert and oriented to person place and time. Normal sensation to light and sharp touch. No focal neurologic deficits. EMERGENCY DEPARTMENT COURSE: I examined the patient. Her exam is unremarkable. Review of the [place] prescription drug monitoring program shows that the patient has been receiving monthly prescriptions for Wolcott from Dr Carrillo she last received a prescription for 34 pills on 11/07/16. The patient reports that she has been taking 2 pills a day and ran out recently. The patient does not receive any narcotic prescriptions from any other providers. She was forthcoming with information regarding previous prescriptions. The patient's records show that she was seen by pain management 3 days ago. I did explain to the patient that the emergency department is not able to treat chronic pain. I recommended that she return to Dr. Carrillo or her primary care provider for any further prescriptions. I did agree to give the patient a home pack medication, but informed her that she will not be receiving any prescriptions today or in the future from the emergency Department for her chronic pain. She was agreeable and verbalized understanding of my assessment and treatment plan. She was discharged home in good condition. DIAGNOSIS: Chronic neck pain Problem List Medical Problems: (1) Asthma Status: Chronic (2) HTN (hypertension) Status: Chronic (3) Hyponatremia Status: Resolved Current/Historical Medications Scheduled Aripiprazole (Abilify), 1 TAB PO DAILY Budesonide/Formoterol Fumarate (Symbicort 160/4.5 Inhaler ), 2 PUFFS INH BID Cholecalciferol (Vitamin D3), 1,000 INTER.UNIT PO DAILY Hctz/Lisinopril (Zestoretic 20MG/12.5MG), 1 TAB PO DAILY Scheduled PRN Albuterol (Ventolin Hfa), 2 PUFFS INH Q4H PRN for Wheezing Hydrocodone/Acetaminophen 5MG/325MG (Wolcott 5MG/325MG), 1 TAB PO TID PRN for Pain Lorazepam (Lorazepam), 1 MG PO DAILY PRN for Anxiety Allergies Coded Allergies: No Known Allergies (Unverified , 09/11/13) Vital Signs Date Time Temp Pulse Resp B/P Pulse Ox O2 Delivery O2 Flow Rate FiO2 3/30/17 11:42 88 16 138/83 96 11/28/16 11:03 36.8 88 16 138/83 96 Room Air Medications Administered Medications (Trade) Dose Ordered Sig/Alex Route Start Time Stop Time Status Last Admin Dose Admin Acetaminophen/ Hydrocodone Bitart (Wolcott 5/325mg Home Pack) 1 homepack UD ONCE PO 11/28/16 11:30 11/28/16 11:31 DC 11/28/16 11:40 1 HOMEPACK Departure Information Impression Primary Impression: Chronic neck pain Dispostion Home / Self-Care Condition GOOD Referrals No Doctor, Assigned (PCP) Patel Carirllo, DO Patient Instructions My [facility] Additional Instructions You have been treated in the Emergency Department for Neck Pain. Wolcott as prescribed. For pain control, you can use the following [id number] medicines (if >12 yo): - Regular strength (325mg/tab) Tylenol (acetaminophen) 2 tabs every 4-6 hours as needed. Do not exceed 12 tablets in a 24 hour period. Avoid taking more than 4 grams (4000 mg) of Tylenol per day. This includes any other sources of acetaminophen you may take on a regular basis. - Regular strength (200 mg/tab) Advil (ibuprofen) 1-2 tabs every 4-6 hours as needed. Do not exceed a dose of 3200 mg per day. Follow-up with Dr. Carrillo for further evaluation of your chronic neck pain. Return to the Emergency Department if your current symptoms worsen despite treatment course outlined above, or if you develop any of the following symptoms : intractable pain despite aforementioned treatment course, facial droop, slurred speech, unilateral weakness, or worsening of her current symptoms.
[2016-11-28] MEDS ORDERED: NORCO 5/325MG HOME PACK PO ONE (11:30)
[2016-11-28 11:42] VITALS: BP 138/83; PULSE 88; O2SAT 96
== END 2016-11-28 11:45 | disposition home or self-care (01) ==
LOC: C.EDB 11:01 → C.EDD 11:45
DX: M54.2 Cervicalgia (principal); G89.29 Other chronic pain; M54.5 Low back pain; I10 Essential (primary) hypertension; J45.909 Unspecified asthma, uncomplicated; F17.200 Nicotine dependence, unspecified, uncomplicated; Z79.899 Other long term (current) drug therapy

== ENCOUNTER 2017-11-19 20:11 | Emergency (ER) | payer OTHER ==
[~2017-11-19] VITALS: Ht 162.6 cm; Wt 62.3 kg
[~2017-11-19 20:11] MED LIST changes: -CHOL1CAP57 PO; -LSN/20125 PO; -PRVHFAIN INH; -RISP0.5T4 PO
[2017-11-19 20:15] VITALS: Ht 162.6 cm; Wt 62.3 kg
[2017-11-19] MEDS ORDERED: ALBUT/IPRATROP 3MG/0.5MG NEB 3 ML VIAL INH STA (20:23)
[2017-11-19] MEDS ORDERED: ACETAMINOPHEN 500 MG TAB PO STA (20:23)
--- NOTE | 2017-11-19 20:31 | EMERGENCY ROOM VISIT NOTE ---
History Report prepared by Andrews: Keyshawn Mares Under the Supervision of: Dr. Nickolas Guerrero M.D. First contact with patient: 20:19 Chief Complaint: BACK PAIN Stated Complaint: PAIN BACK UNDER R ARM PIT,MUCOUS History of Present Illness The patient is a 62 year old female who presents to the Emergency Room with complaints of constant back pain for the past 3 days after a fall. The patient states that she lost her balance and fell and hit her back, though she did not hit her head or neck. She additionally notes that the pain is worse with coughing, and she also has pain under her right arm pit. The patient states that she has been coughing, and she states that she is unable to bring up any mucous. She has a history of asthma, and she last used her inhaler this morning. The patient also notes that she has a history if a broken rib in the past. She has been using Tylenol for the pain, and she last took it around 1430. She notes that she has been working the past couple of days, and she lifts heavy things at her work. The patient is not on any blood thinners. Source of History: patient Onset: three days ago Position: back Timing: constant Modifying Factors (Worsening): other (coughing) Associated Symptoms: + cough Note: Associated symptoms: Right arm pit pain. Review of Systems See HPI for pertinent positives & negatives. A total of 10 systems reviewed and were otherwise negative. Past Medical & Surgical Medical Problems: (1) Asthma (2) HTN (hypertension) (3) Hyponatremia Social History Problems: (1) Alcohol use Family History Diabetes mellitus FH: heart disease Hypertension Kidney disease or stones Social History Smoking Status: Current Every Day Smoker Marital Status: single Housing Status: lives alone Occupation Status: employed Current/Historical Medications Scheduled Aripiprazole (Abilify), 1 TAB PO DAILY Budesonide/Formoterol Fumarate (Symbicort 160/4.5 Inhaler ), 2 PUFFS INH BID Cholecalciferol (Vitamin D3), 1,000 INTER.UNIT PO DAILY Hctz/Lisinopril (Zestoretic 20MG/12.5MG), 1 TAB PO DAILY Scheduled PRN Albuterol (Ventolin Hfa), 2 PUFFS INH Q4H PRN for Wheezing Hydrocodone/Acetaminophen 5MG/325MG (Globe 5MG/325MG), 1 TAB PO TID PRN for Pain Lorazepam (Lorazepam), 1 MG PO DAILY PRN for Anxiety Tramadol (Ultram), 50-100 MG PO Q4H PRN for Pain Allergies Coded Allergies: No Known Allergies (Unverified , 09/11/13) Physical Exam Vital Signs Date Time Temp Pulse Resp B/P (MAP) Pulse Ox O2 Delivery O2 Flow Rate FiO2 11/19/17 21:30 36.8 90 18 145/80 97 Room Air 11/19/17 20:15 36.7 97 18 156/94 97 Room Air Physical Exam GENERAL: Patient is in no acute distress. HEENT: No acute trauma, normocephalic atraumatic, mucous membranes moist, no nasal congestion, no scleral icterus. NECK: No stridor, no adenopathy, no meningismus, trachea is midline. No posterior cervical spine tenderness. LUNGS: Tender over the right lateral and superior upper ribs. No contusion. Pain does worsen with coughing. Bilateral wheezing heard. Equal breath sounds. No respiratory distress. HEART: Without murmurs gallops or rubs, regular rate and rhythm. ABDOMEN: Soft, nontender, bowel sounds positive, no hernias, no peritonitis. EXTREMITIES: No cyanosis or edema, full range of motion of all the joints without pain or difficulty, no signs for acute trauma. NEUROLOGIC: Oriented x 3, no acute motor or sensory deficits, no focal weakness. SKIN: No rash, no jaundice, no diaphoresis. Medical Decision & Procedures ER Provider Diagnostic Interpretation: Radiology results as stated below per my review and radiologist interpretation: R RIBS UNILATERAL WITH PA CHEST HISTORY: 62 years-old Female fall, pain ribs acute right-sided rib pain status post fall COMPARISON: Rib and chest radiographs 09/11/2013 TECHNIQUE: PA view the chest with 4 views of the right ribs FINDINGS: Cardiomediastinal and hilar silhouettes are within normal limits. Atherosclerosis of the aorta. No pneumothorax, pleural effusion, focal airspace consolidation or overt pulmonary edema. Healed remote fractures of the posterior lateral right sixth, seventh and eighth ribs redemonstrated with subacute or chronic appearing fracture of the posterior lateral right third rib. IMPRESSION: 1. No acute process of the chest. 2. Healed remote fractures of the right posterior lateral sixth, seventh and eighth ribs with subacute or chronic appearing fracture of the posterolateral right third rib. No pneumothorax. The above report was generated using voice recognition software. It may contain grammatical, syntax or spelling errors. Electronically signed by: Agapito Diggs M.D. 11/19/2017 9:09 PM Dictated Date/Time: 11/19/2017 9:05 PM Medications Administered Medications (Trade) Dose Ordered Sig/Alex Route Start Time Stop Time Status Last Admin Dose Admin Albuterol/ Ipratropium (Duoneb) 3 ml NOW STAT INH 11/19/17 20:23 11/19/17 20:25 DC 11/19/17 20:36 3 ML Acetaminophen (Tylenol Tab) 1,000 mg NOW STAT PO 11/19/17 20:23 11/19/17 20:25 DC 11/19/17 20:36 1,000 MG Tramadol HCl (Ultram Home Pack) 1 homepack UD ONCE PO 11/19/17 21:30 11/19/17 21:31 DC 11/19/17 21:26 1 HOMEPACK ED Course 2019: The patient was evaluated in room B11. A complete history and physical exam was performed. 2022: Tylenol Tab 1000mg PO, DuoNeb 3ml INH 2124: Reevaluated the patient. Discussed results and discharge instructions: she verbalized understanding and agreement. The patient is ready for discharge. 2129: Tramadol HCl Home Pack PO Medical Decision Differential diagnoses include: rib fracture, rib contusion, hemothorax, pneumothorax; head, neck, or abdominal trauma. The patient presents with a fall and right rib pain. On exam, her lungs had some wheezing, the breath sounds were equal. I could not find evidence for head or neck injury. There is no evidence for abdominal injury. Films of the right ribs show healing fractures to the sixth, seventh and eighth ribs. There is a new fracture to the right third rib. No pneumothorax or hemothorax. The patient was given oral Tylenol, a DuoNeb. She is being discharged. She can use tramadol at home for severe pain. She will keep using the Tylenol as needed. I have encouraged her to use her albuterol 2-3 puffs every 4-6 hours. If things are worsening, she can return. [place] Drug Monitoring Program Search Results: patient reviewed within database, no issues identified Medication Reconcilliation Current Medication List: was personally reviewed by me Blood Pressure Screening Patient's blood pressure: Elevated blood pressure Blood pressure disposition: Elevated BP felt to be situational Impression Primary Impression: Right rib fracture Additional Impression: Fall Scribe Attestation The scribe's documentation has been prepared under my direction and personally reviewed by me in its entirety. I confirm that the note above accurately reflects all work, treatment, procedures, and medical decision making performed by me. Departure Information Dispostion Home / Self-Care Prescriptions Tramadol (Ultram) 50 Mg Tab 50-100 MG PO Q4H Y for Pain, #8 TAB Prov: Nickolas Guerrero M.D. 11/19/17 Referrals No Doctor, Assigned (PCP) Forms HOME CARE DOCUMENTATION FORM, IMPORTANT VISIT INFORMATION Patient Instructions My [facility] Additional Instructions use tylenol for pain use heat to comfort albuterol inhaler 2-3 puffs every 4-6 hours may use tramadol 1-2 tab as needed every 4 hours for severe pain--do not drive or use alcohol with this medication return if worsening or feel more short of breath Problem Qualifiers
[2017-11-19] MEDS ORDERED: PRVHFAIN INH (20:54)
[2017-11-19] MEDS ORDERED: CHOL1CAP57 PO (20:54)
[2017-11-19] MEDS ORDERED: LSN/20125 PO (20:54)
--- NOTE | 2017-11-19 21:10 | DIAGNOSTIC IMAGING REPORT ---
R RIBS UNILATERAL WITH PA CHEST HISTORY: 62 years-old Female fall, pain ribs acute right-sided rib pain status post fall COMPARISON: Rib and chest radiographs 09/11/2013 TECHNIQUE: PA view the chest with 4 views of the right ribs FINDINGS: Cardiomediastinal and hilar silhouettes are within normal limits. Atherosclerosis of the aorta. No pneumothorax, pleural effusion, focal airspace consolidation or overt pulmonary edema. Healed remote fractures of the posterior lateral right sixth, seventh and eighth ribs redemonstrated with subacute or chronic appearing fracture of the posterior lateral right third rib. IMPRESSION: 1. No acute process of the chest. 2. Healed remote fractures of the right posterior lateral sixth, seventh and eighth ribs with subacute or chronic appearing fracture of the posterolateral right third rib. No pneumothorax. The above report was generated using voice recognition software. It may contain grammatical, syntax or spelling errors. Electronically signed by: Agapito Diggs M.D. 11/19/2017 9:09 PM Dictated Date/Time: 11/19/2017 9:05 PM
[2017-11-19] MEDS ORDERED: TRAM-10 PO (21:25)
[2017-11-19 21:30] VITALS: BP 145/80; PULSE 90; TEMP 36.8; O2SAT 97
[2017-11-19] MEDS ORDERED: TRAMADOL HCL 50 MG HOME PACK PO ONE (21:30)
[2017-11-19] MEDS ORDERED: VITA400C3 PO (21:47)
[2017-11-19] MEDS ORDERED: BIOTCAP2 PO (21:47)
[2017-11-19] MEDS ORDERED: LDXO60 TOP (21:47)
[2017-11-19] MEDS ORDERED: BUPR-79 PO (21:47)
[2017-11-19] MEDS ORDERED: FLUT0.15 NAE (21:47)
[2017-11-19] MEDS ORDERED: SKINCRE34 TOP (21:47)
[2017-11-19] MEDS ORDERED: OMEG10007 PO (21:47)
[2017-11-19] MEDS ORDERED: ATV/1 PO (21:47)
== END 2017-11-19 21:46 | disposition home or self-care (01) ==
LOC: C.EDB 20:12
DX: S22.31XA Fracture of one rib, right side, initial encounter for closed fracture (principal); W18.30XA Fall on same level, unspecified, initial encounter; J45.909 Unspecified asthma, uncomplicated; I10 Essential (primary) hypertension; F17.200 Nicotine dependence, unspecified, uncomplicated; Z72.89 Other problems related to lifestyle; Z83.3 Family history of diabetes mellitus; Z82.49 Family history of ischemic heart disease and other diseases of the circulatory system; Z84.1 Family history of disorders of kidney and ureter